=== PATIENT | female | born 1995 | race African-American/Black ===

== ENCOUNTER 2018-05-20 21:05 | Emergency (ER) | payer MEDICAID ==
[2018-05-21] MEDS ORDERED: BUPIVACAINE HCL 0.5 % INJ/PF 30 ML SDV INJ ONE (00:04)
[2018-05-21] MEDS ORDERED: LIDOCAINE 1% INJ-PF (10 MG/ML) 30 ML SDV INJ ONE (00:04)
[2018-05-21] MEDS ORDERED: IBUPROFEN 600 MG TABLET PO ONE (01:43)
[2018-05-21] MEDS ORDERED: ACETAMINOPHEN 325 MG TABLET PO ONE (01:43)
[2018-05-21] MEDS ORDERED: SULFAMETHOXAZOLE/TRIMETHOPRIM 800-160 MG TABLET PO ONE (01:44)
--- NOTE | 2018-05-21 01:44 | ER Document Report ---
ED General - General Chief Complaint: Toe Injury Stated Complaint: FOOT SWELLING Time Seen by Provider: 05/20/18 23:44 Notes: Patient is a 23-year-old female who presents emergency department with right fifth toe pain. She states she has a history of hangnails and always has to have her toenail removed. She denies any trauma to her toe. She does state that she rubbed her toenail on something and this caused her hangnail. It hurts when she walks. Nothing makes the pain better. She denies any past medical history. TRAVEL OUTSIDE OF THE [place] IN LAST 30 DAYS: No - Related Data Allergies/Adverse Reactions: Penicillins Allergy (Verified 05/21/18 00:31) Hives Past Medical History - Social History Smoking Status: Never Smoker Frequency of alcohol use: None Lives with: Parents Family History: None Review of Systems - Review of Systems Notes: REVIEW OF SYSTEMS: CONSTITUTIONAL : Denies recent illness. Denies recent unintentional weight loss. Denies fever, chills, or sweats. EENT: Denies eye, ear, throat, or mouth pain, discharge, or symptoms. Denies nasal or sinus congestion. CARDIOVASCULAR: Denies chest pain. RESPIRATORY: Denies shortness of breath, cough, congestion, difficulty breathing , or wheezing. GASTROINTESTINAL: Denies nausea, vomiting, and diarrhea. Denies abdominal pain. Denies constipation. GENITOURINARY: Denies difficulty urinating, burning, blood in urine, urgency or frequency. MUSCULOSKELETAL: Denies neck and back pain. Denies joint pain or swelling. SKIN: See HPI HEMATOLOGIC : Denies easy bruising or bleeding. LYMPHATIC: Denies swollen, painful, enlarged glands. NEUROLOGICAL: Denies no numbness or tingling denies weakness. Denies headache. Denies altered mental status. Denies alteration in speech. PSYCHIATRIC: Denies stress, anxiety, alteration in sleep patterns, or depression. All other systems reviewed and negative. Physical Exam - Vital signs Vitals: Temp Pulse Resp BP Pulse Ox 97.8 F 72 18 127/71 H 99 05/20/18 22:13 05/20/18 22:13 05/20/18 22:13 05/20/18 22:13 05/20/18 22:13 - Notes Notes: PHYSICAL EXAMINATION: GENERAL: Appears well, healthy, well-nourished, no acute distress. HEAD: Normocephalic, atraumatic. EYES: PERRL, conjunctiva normal, all extraocular movements intact, sclera nonicteric ENT: Moist mucous membranes. NECK: Supple, no noticeable swelling, redness, rash. Normal range of motion. LUNGS: Equal breath sounds bilaterally and clear to auscultation. No wheezes rales or rhonchi. CARDIOVASCULAR: S1-S2, regular rate, regular rhythm. Radial pulses 2+, normal. ABDOMEN: Normoactive bowel sounds. Soft, nontender, no guarding, no rebound tenderness, and no masses palpated. EXTREMITIES: Normal strength and range of motion, no pitting or edema. No cyanosis. NEUROLOGICAL: Moves all extremities upon command. Strength 5/5 in all extremities. PSYCH: Normal mood, normal affect. SKIN: Paronychia noted to right fifth toe. Warm, dry. No rash, lesions, ulcerations noted. Normal skin turgor. Course - Re-evaluation Re-evalutation: Patient had her right fifth toe paronychia drained. She was requesting to have her toenail removed, but since she has had a previous toenail removal, I was unable to fully remove her toenail. She will be sent to podiatry for a follow- up visit since she has had recurrent paronychia is with toenail removal. She will also be sent home on oral antibiotics. Discharge instructions were given to the patient and she verbalized understanding. Patient is stable for discharge. - Vital Signs Vital signs: Temp Pulse Resp BP Pulse Ox 97.8 F 73 16 115/65 97 05/20/18 22:13 05/21/18 02:19 05/21/18 02:19 05/21/18 02:19 05/21/18 02:19 Procedures - Incision and Drainage Right Toe 5th digit Type: Simple Anesthetic type: 1% Lidocaine, 0.5% Bupivacaine mL's of anesthetic: 6 Blade size: 11 I&D procedure: Shurclens applied Incision Method: Incision made by scalpel Discharge - Discharge Clinical Impression: Paronychia of fifth toe of right foot Condition: Stable Disposition: HOME, SELF-CARE Additional Instructions: You have been seen in the emergency department for a ingrown toenail which caused an infection in the skin around her toe. You may take Tylenol 1000 mg and Motrin 600 mg every 6 hours as needed for the pain. Since this is a recurrent issue, please follow-up with a real estate agent/broker. You have been prescribed antibiotics. Even if you feel better, please finish all your medication as prescribed. If you develop a fever greater than 100.4 F, have worsening symptoms, have increased redness or swelling to the area, or have any symptoms that are worrisome to you, please return to the emergency department. Prescriptions: Sulfamethoxazole/Trimethoprim [Bactrim Ds Tablet] 1 each PO BID #14 tablet Referrals: PIA AGOSTO DPM [ACTIVE STAFF] - Follow up in 3-5 days
[2018-05-21 02:22] VITALS: BP 115/65
== END 2018-05-21 02:18 | disposition home or self-care (01) ==
LOC: ER 21:05
DX: L03.031 Cellulitis of right toe (principal); Z88.0 Allergy status to penicillin
CPT/HCPCS: 99283; 10060; J3490 ×2